=== PATIENT | male | born 2000 | race Native Hawaiian/Other Pacific Islander ===

== ENCOUNTER 2023-10-10 04:10 | Emergency (ER) | payer MEDICAID ==
[~2023-10-10] VITALS: Ht 188 cm; Wt 138.6 kg
[2023-10-10] MEDS ORDERED: NS 1,000 ML IV ONE (04:55)
[2023-10-10 05:05] LABS: BASO # 0.1 10^3/uL (0.0-0.2); BASO % 0.3 % (0.0-1.0); EOS # 1.9 10^3/uL (0.0-0.5); EOS % 8.2 % (0.0-3.0); HEMOGLOBIN 13.6 g/dl (13.5-17.5); LYMPH # 5.4 10^3/uL (1.5-5.0); LYMPH % 23.5 % (24.0-44.0); MEAN CORPUSCULAR HGB CONC 31.6 g/dl (32.0-36.5); MEAN CORPUSCULAR VOLUME 79.2 fl (80.0-96.0); MONO # 1.4 10^3/uL (0.0-0.8); MONO % 6.1 % (2.0-8.0); NEUTROPHILS # 14.1 10^3/uL (1.5-8.5); NEUTROPHILS % 61.3 % (36.0-66.0); PLATELET COUNT, AUTOMATED 418 10^3/uL (150-450); RED BLOOD COUNT 5.43 10^6/uL (4.30-6.10)
[2023-10-10] MEDS ORDERED: ONDANSETRON 4MG 2ML VIAL IV ONE (05:10)
[2023-10-10] MEDS: PANTOPRAZOLE SODIUM 40 MG in D5W MINI-BAG PLUS 50 ML IV SCH ×2 (05:18→09:34)
[2023-10-10 05:19] LABS: LIPASE 26 U/L (12-53)
[2023-10-10 05:21] LABS: ALBUMIN 3.1 G/DL (3.2-5.2); ALKALINE PHOSPHATASE 44 U/L (46-116); ALT/SGPT 36 U/L (7.0-40); AST/SGOT 23 U/L (<34); BILIRUBIN,DIRECT 0.2 MG/DL (<0.4); BILIRUBIN,TOTAL 0.4 MG/DL (0.3-1.2); BLOOD UREA NITROGEN 30 MG/DL (9-23); CALCIUM LEVEL 8.6 MG/DL (8.5-10.1); CARBON DIOXIDE LEVEL 25 MMOL/L (20-31); CHLORIDE LEVEL 106 MMOL/L (98-107); CREATININE FOR GFR 0.83 MG/DL (0.70-1.30); GLOMERULAR FILTRATION RATE > 60.0 (>60); GLUCOSE, FASTING 131 MG/DL (60-100); POTASSIUM SERUM 4.9 MMOL/L (3.5-5.1); SODIUM LEVEL 141 MMOL/L (136-145); TOTAL PROTEIN 6.3 G/DL (5.7-8.2)
[2023-10-10 05:25] LABS: INR 1.2; PROTHROMBIN TIME 14.8 SECONDS (12.5-14.5)
[2023-10-10 05:26] LABS: RSV AMPLIFICATION NEGATIVE (NEGATIVE)
[2023-10-10 05:26] LABS: PARTIAL THROMBOPLASTIN TIME 27.5 SECONDS (24.8-34.2)
[2023-10-10] MEDS ORDERED: ISOVUE-370 76% 100ML VIAL As Ordered ONE (05:26)
[2023-10-10] MEDS ORDERED: NS IV ONE (06:55)
[2023-10-10] MEDS ORDERED: OCTREOTIDE ACETATE 100MCG/ML VIAL **IV ADMINISTRATION ONLY IV ONE (06:55)
[2023-10-10] MEDS ORDERED: cefTRIAXone SOD 1 GM in D5W MINI-BAG PLUS 50 ML IV ONE (07:00)
[2023-10-10 07:51] VITALS: BP 123/57; TEMP 97.1; O2SAT 99
[2023-10-10] MEDS ORDERED: OCTREOTIDE ACETATE 1,200 MCG in NS 238.8 ML IV SCH (08:00)
[2023-10-10 08:09] VITALS: BP 118/56; TEMP 97; O2SAT 97
[2023-10-10 09:01] VITALS: BP 159/63; TEMP 98.3; O2SAT 100
[2023-10-10 09:16] VITALS: BP 152/63; TEMP 98.5; O2SAT 100
== END 2023-10-10 09:29 | disposition short-term general hospital (02) ==
LOC: EDBD 04:10 → M ED 04:10
DX: K92.2 Gastrointestinal hemorrhage, unspecified (principal); F17.200 Nicotine dependence, unspecified, uncomplicated
CPT/HCPCS: 36430; 71260; 74177; 80047; 80048; 80076; 82270; 83605; 83690; 85025; 85610; 85730; 86850; 86900; 86901; 86920; 87631; 93005; 96365; 96366; 96368; 96375; 99285; C9113; J0696; J2354; J2405; P9016; Q9967